=== PATIENT | female | born 1975 | race American Indian/Alaskan Native ===

== ENCOUNTER 2019-06-04 10:51 | Day surgery (SDC) | payer MEDICARE, MEDICAID ==
[2019-06-04] VITALS (7 sets, daily range): BP systolic 109–159; BP diastolic 49–90
[~2019-06-04] VITALS: Ht 172.7 cm; Wt 102.0 kg
[~2019-06-04 10:51] MED LIST: ARIP300S2 IM; CHOL100046 PO; IBUP-24 PO; MULT-933 PO; ceFOXitin 2 GM ADDvantage bag 100 ML IV ONE; ceFOXitin 2 GM ADDvantage bag 50 ML IV ONE; ceFOXitin sod/dextrose 2g/50ml 50 ML IV ONE; cefazolin/dext.iso 2gm/100ml 100 ML IV ONE; famotidine 10mg tablet PO ONE; famotidine 20mg tablet PO ONE; ringers solution, lacted 1,000 ML IV SCH
[2019-06-04] MEDS ORDERED: rocuronium 10mg/ml inj IV ONE ×2 (12:17→12:48)
[2019-06-04] MEDS ORDERED: ceFAZolin 1000mg inj ONE (12:18)
[2019-06-04] MEDS ORDERED: BUPIVAcaine/PF 2.5 mg/ml (0.25%) 30ml vial ONE (12:18)
[2019-06-04] MEDS ORDERED: labetalol 20mg/4ml (5mg/ml) syringe IV ONE (12:37)
[2019-06-04] MEDS ORDERED: sevoflurane 250ml liquid IH ONE (12:37)
[2019-06-04] MEDS ORDERED: fentaNYL/PF 50MCG/1 ML 2ML syringe ONE ×2 (12:40→13:23)
[2019-06-04 12:45] LABS: ISTAT ANION GAP 12 (8-12); ISTAT BUN 10 mg/dL (6-19); ISTAT CL 104 mmol/L (99-107); ISTAT CREATININE 0.6 mg/dL (0.6-1.1); ISTAT GLUCOSE 90 mg/dL (70-104); ISTAT HGB 10.5 g/dl (12.0-16.0); ISTAT Hct 31 %PCV (35-48); ISTAT IONIZED CALCIUM 1.16 mmol/L (1.03-1.32); ISTAT K 4.1 mmol/L (3.5-5.1); ISTAT NA 140 mmol/L (135-145); ISTAT TOTAL CO2 24 mmol/L (24-32); ISTAT eGFR > 90 ML/MIN; POC BUN/CREATININE RATIO 16.7 (6.6-38.0)
[2019-06-04] MEDS ORDERED: LIDOcaine 2% (20mg/ml) 5ml vial ONE (12:48)
[2019-06-04] MEDS ORDERED: glycopyrrolate 0.2mg/ml inj ONE (12:48)
[2019-06-04] MEDS ORDERED: propofol inj 20 ML IV ONE (12:48)
[2019-06-04] MEDS ORDERED: ondansetron/PF 4mg/2ml inj ONE (12:48)
[2019-06-04] MEDS ORDERED: dexamethasone sod phosphate 4mg/ml inj. ONE (12:48)
[2019-06-04] MEDS ORDERED: neostigmine methylsulfate 1 MG/ML 10ml vial ONE (12:48)
[2019-06-04] MEDS ORDERED: ringers solution, lacted 1,000 ML IV SCH (12:58)
[2019-06-04] MEDS ORDERED: labetalol 20mg/4ml (5mg/ml) syringe IV PRN (13:00)
[2019-06-04] MEDS ORDERED: hydrALAZINE 20mg/ml inj. IV PRN (13:00)
[2019-06-04] MEDS ORDERED: ondansetron/PF 4mg/2ml inj IV PRN (13:00)
[2019-06-04] MEDS ORDERED: fentaNYL/PF 50MCG/1 ML 2ML syringe IV PRN ×2 (13:00)
[2019-06-04] MEDS ORDERED: morphine 4 MG/ML inj SYRINge IV PRN ×2 (13:00)
[2019-06-04] MEDS ORDERED: ketorolac trometh. 30mg/ml inj. ONE (13:22)
--- NOTE | 2019-06-04 13:33 | NUR ---
Received from OR via yarelis, accompanied by Anesthesiologist Mary Jane and report given by Anesthesiolgist. Pt lap sites CDI to abdomen, 20G IV to right forearm. Pt sleepy but responsive. All VS stable mask at 10L and sats greater than 98%. Pt has IVF LR at 100cc/hr.
[2019-06-04] MEDS ORDERED: HYDROcodone/acetaminophen 10/325mg tab PO ONE (14:15)
--- NOTE | 2019-06-04 14:43 | NUR ---
Pt discharged to vehicle without issues, verbalized understanding of all discharge information. Pt IV DC'd, all belongings with patient. Ambulated voided and ate. Pt alert and oriented. Pt will hot die picker meds already called into pharmacy. Pt abdomen remains CDI at bandaid lap sites.
== END 2019-06-04 14:43 | disposition home or self-care (01) ==
LOC: PAS 10:51
PROVIDERS: ATTEND Surgery
DX: K80.10 Calculus of gallbladder with chronic cholecystitis without obstruction (principal); K74.60 Unspecified cirrhosis of liver; F32.9 Major depressive disorder, single episode, unspecified; E83.52 Hypercalcemia; F15.10 Other stimulant abuse, uncomplicated; F41.9 Anxiety disorder, unspecified; E66.01 Morbid (severe) obesity due to excess calories; Z68.34 Body mass index [BMI] 34.0-34.9, adult; Z79.899 Other long term (current) drug therapy; F17.210 Nicotine dependence, cigarettes, uncomplicated; Z88.8 Allergy status to other drugs, medicaments and biological substances
CPT/HCPCS: 47562; 80047; J0690; J0694; J1100; J1885; J2001; J2405; J2704; J2710; J3010; J3490; J7120; A4215; A4618; A7000

== ENCOUNTER 2020-10-01 15:53 | Emergency (ER) | payer MEDICARE, MEDICAID ==
[~2020-10-01] VITALS: Ht 172.7 cm; Wt 109.1 kg
[~2020-10-01 15:53] MED LIST changes: -ceFOXitin 2 GM ADDvantage bag 100 ML IV ONE; -ceFOXitin 2 GM ADDvantage bag 50 ML IV ONE; -ceFOXitin sod/dextrose 2g/50ml 50 ML IV ONE; -cefazolin/dext.iso 2gm/100ml 100 ML IV ONE; -famotidine 10mg tablet PO ONE; -famotidine 20mg tablet PO ONE; -ringers solution, lacted 1,000 ML IV SCH
--- NOTE | 2020-10-01 16:10 | NUR ---
Received Pt directly from ambulance, which came from [facility], and placed in bed 22 ER overflow. Pt is on a 5150 hold for DTO/DTS. She is anbulatory and cooperative. She was triaged and, changed into green scrubs and belongings inventoried and secured.
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
[2020-10-01] MEDS ORDERED: acetaminophen 325mg tablet PO ONE (17:35)
[2020-10-01 17:50] LABS: BASOPHILS % (AUTO) 0.5 % (0-1); EOSINOPHILS % (AUTO) 0 % (0-6); HEMATOCRIT 34.4 % (35.0-45.0); LYMPHOCYTES # (AUTO) 2.6 X10'3 (1.1-4.8); LYMPHOCYTES % (AUTO) 33.4 % (21-51); MEAN CORPUSCULAR HEMOGLOBIN 25.4 PG (27.0-31.0); MEAN CORPUSCULAR VOLUME 79.3 FL (78-98); MEAN PLATELET VOLUME 6.7 FL (7.4-10.4); MONOCYTES # (AUTO) 0.8 X10'3 (0-0.9); NEUTROPHILS # (AUTO) 4.3 X10'3 (1.8-7.7); NEUTROPHILS % (AUTO) 56.1 % (42-75); PLATELET COUNT 388 X10'3 (140-440); RED BLOOD COUNT 4.33 X10'6 (4.20-5.60); RED CELL DISTRIBUTION WIDTH 18.6 % (11.5-14.5); WHITE BLOOD COUNT 7.7 X10'3 (4.5-11.0)
[2020-10-01 18:09] LABS: ALANINE AMINOTRANSFERASE 24 U/L (12-78); ALBUMIN 3.2 G/DL (3.4-5.0); ALBUMIN/GLOBULIN RATIO 0.9 (1.1-1.5); ALKALINE PHOSPHATASE 158 IU/L (46-116); ANION GAP 9 (8-16); ASPARTATE AMINO TRANSFERASE 25 U/L (10-37); BILIRUBIN,TOTAL 0.2 MG/DL (0.1-1.0); BLOOD UREA NITROGEN 10 MG/DL (7-18); BUN/CREATININE RATIO 12.8 (6.6-38.0); CALCIUM 8.2 MG/DL (8.5-10.1); CHLORIDE 104 MMOL/L (99-107); CREATININE 0.78 MG/DL (0.40-0.90); ETHANOL < 0.010 GM/DL (0.0-0.010); GLUCOSE 94 MG/DL (70-104); POTASSIUM 3.5 MMOL/L (3.5-5.1); SODIUM 141 MMOL/L (135-145); TOTAL CARBON DIOXIDE 27.8 MMOL/L (24-32); TOTAL PROTEIN 6.9 G/DL (6.4-8.2); eGFR 80 ML/MIN
[2020-10-01 18:52] LABS: PLATELET ESTIMATE NORMAL
[2020-10-01 18:53] LABS: ANISOCYTOSIS 2+; MICROCYTOSIS 1+
[2020-10-01 19:05] LABS: URINE HCG NEGATIVE (NEG)
[2020-10-01 19:10] LABS: URINE AMPHETAMINE SCREEN POSITIVE (Neg); URINE BARBITUATE SCREEN NEGATIVE (Neg); URINE BENZODIAZEPINES SCREEN NEGATIVE (Neg); URINE CANNABINOID SCREEN POSITIVE (Neg); URINE COCAINE SCREEN NEGATIVE (Neg); URINE METHADONE SCREEN NEGATIVE (Neg); URINE OPIATE SCREEN POSITIVE (Neg); URINE PHENCYCLIDINE SCREEN NEGATIVE (Neg)
--- NOTE | 2020-10-01 20:44 | NUR ---
BREAKING PRIMARY RN; WILL CONT TO MONITOR.
--- NOTE | 2020-10-02 02:06 | NUR ---
Caity Patel has called notified nurse of bed hold for patient, pending negative COVID-19 test.
--- NOTE | 2020-10-02 03:27 | NUR ---
BREAKING PRIMARY RN, WILL CONT TO MONITOR
--- NOTE | 2020-10-02 06:11 | NUR ---
Caity Patel was just notified of negative COVID-19 results via phone. Lab results have also been faxed over.
--- NOTE | 2020-10-02 07:14 | NUR ---
NURSE TO NURSE REPORT GIVEN TO JAMAL SNIDER. PT HAS BEEN ACCEPTED AND ETA FOR TRANSPORT IS 1700. ACCEPTING MD IS DR LAW AND PT WILL BE ADMITTED TO 302A
--- NOTE | 2020-10-02 11:39 | NUR ---
JENS FROM [facility] OFF[facility] CALLED, NO DRIVERS ARE AVAILABLE TO TRANSPORT PT TO [facility] TODAY. WILL CONTINUE TO LOOK AT PLACEMENTS, [facility] WAS CONTACTED.
--- NOTE | 2020-10-02 16:22 | NUR ---
PT SLEEPING QUIETLY, NO S/S OF DISTRESS NOTED
[2020-10-02] MEDS ORDERED: acetaminophen 325mg tablet PO ONE (18:00)
--- NOTE | 2020-10-03 06:40 | NUR ---
PT RESTING WITH EYES CLOSED, EFFORTLESS RESPIRATIONS OBSERVED.
--- NOTE | 2020-10-03 09:25 | NUR ---
RECEIVED CALL FROM STAFF AT [facility] (SANJAY) THAT PTS BED IS NO LONGER BEING HELD DUE TO TRANSPORT WAIT. [facility] OFFICE CONTACTED AND INFORMED JENS OF UPDATE
--- NOTE | 2020-10-03 11:19 | NUR ---
PT REMAINS CALM,COOPERATIVE AND CONTINUES TO DENIE SI OR HI.
--- NOTE | 2020-10-03 13:30 | NUR ---
PT UP AND EATING LUNCH TRAY
--- NOTE | 2020-10-03 19:30 | NUR ---
The patient was moved to bed 22 in the ER overflow. She was very cooperative with the move. She appeared sad and was tearful when asked about voices. She stated that she was hearing voices that tell her that she had a baby that . She stated that she has a history of schizophrenia and has been receiving a monthly abilify injection with her last injection was two weeks ago. Dr. Green was made aware and orders received.
[2020-10-03] MEDS ORDERED: OLANZapine 2.5MG tablet PO ONE (19:45)
[2020-10-03] MEDS ORDERED: OLANZAPINE 5 MG TABLET PO ONE (19:45)
--- NOTE | 2020-10-03 20:42 | NUR ---
The patienta appears to be sleeping
--- NOTE | 2020-10-03 21:44 | NUR ---
The patient appears to be sleeping
--- NOTE | 2020-10-03 23:59 | NUR ---
The patient appears to be sleeping
--- NOTE | 2020-10-04 02:15 | NUR ---
The patient appears to be sleeping
--- NOTE | 2020-10-04 04:03 | NUR ---
The patient appears to be sleeping
--- NOTE | 2020-10-04 06:42 | NUR ---
Patient sleeping supine. No distress observed. Continue to monitor.
--- NOTE | 2020-10-04 07:40 | NUR ---
Patient sleeping on right side. No distress observed. Continue to monitor.
--- NOTE | 2020-10-04 09:11 | NUR ---
Patient is awake and needing a pad for her menses. Patient also asked for some Tylenol. Patient stated she does not want Ibuprofen because it gives her a stomach ache. RN to get order. Continue to monitor.
[2020-10-04] MEDS: acetaminophen 325mg tablet PO PRN ×2 (09:23→14:07)
--- NOTE | 2020-10-04 11:02 | NUR ---
Patient reclining in bed with a warm blanket on her abdomen. Continue to monitor.
--- NOTE | 2020-10-04 12:25 | NUR ---
KAITLYNN MEEKO AT BEDSIDE EVALUATING PATIENT.
--- NOTE | 2020-10-04 13:10 | NUR ---
Patient eating lunch. No distress observed. Continue to monitor.
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
--- NOTE | 2020-10-04 16:00 | NUR ---
Patient making phone calls. No distress observed. Continue to monitor.
--- NOTE | 2020-10-04 17:29 | NUR ---
Patient sleeping on right side. No distress observed. Continue to monitor.
[2020-10-04 17:45] VITALS: BP 114/66
[2020-10-04] MEDS ORDERED: LORazepam 1 MG tablet PO PRN (17:50)
[2020-10-04] MEDS ORDERED: OLANZapine 5mg rapidly disint. tablet PO SCH (20:00)
[2020-10-04] MEDS ORDERED: OLAN-1 PO (21:32)
[2020-10-05] MEDS ORDERED: ACET325T55 PO (11:13)
== END 2020-10-04 21:22 ==
LOC: ER 15:54
DX: F32.9 Major depressive disorder, single episode, unspecified (principal); F20.9 Schizophrenia, unspecified; Z20.822 Contact with and (suspected) exposure to COVID-19; F15.90 Other stimulant use, unspecified, uncomplicated; Z90.49 Acquired absence of other specified parts of digestive tract; Z72.89 Other problems related to lifestyle; Z88.8 Allergy status to other drugs, medicaments and biological substances; Z79.899 Other long term (current) drug therapy
CPT/HCPCS: 80053; 80305; 80320; 81025; 85008; 85025; 87635; 99285; C9803

== ENCOUNTER 2023-04-22 12:55 | Emergency (ER) | payer MEDICARE, MEDICAID ==
[~2023-04-22] VITALS: Ht 175.3 cm; Wt 90.9 kg
[~2023-04-22 12:55] MED LIST changes: +ACET325T55 PO; -ARIP300S2 IM; +ARIP400S3 IM; -IBUP-24 PO; +MULT-25 PO; -MULT-933 PO; +OLAN10TA73 PO
[2023-04-22 12:59] VITALS: BP 123/62; PULSE 79; RESP 20; TEMP 97; O2SAT 100
[2023-04-22 14:23] LABS: EOSINOPHILS % (AUTO) 0 % (0-6); HEMOGLOBIN 11.6 g/dl (12.0-16.0); LYMPHOCYTES # (AUTO) 2.1 X10'3 (1.1-4.8); MEAN PLATELET VOLUME 7.1 FL (7.4-10.4); MONOCYTES # (AUTO) 0.6 X10'3 (0-0.9)
[2023-04-22 14:28] LABS: BASOPHILS # (AUTO) 0.1 X10'3 (0-0.2); BASOPHILS % (AUTO) 0.7 % (0-1); HEMATOCRIT 35.6 % (35.0-45.0); LYMPHOCYTES % (AUTO) 26.7 % (21-51); MEAN CORPUSCULAR HGB CONC 32.7 g/dL (33.0-36.5); MEAN CORPUSCULAR VOLUME 85.6 FL (78-98); MONOCYTES % (AUTO) 8.1 % (2-12); NEUTROPHILS % (AUTO) 64.5 % (42-75); PLATELET COUNT 412 X10'3 (140-440); RED BLOOD COUNT 4.15 X10'6 (4.20-5.60); RED CELL DISTRIBUTION WIDTH 15.5 % (11.5-14.5); WHITE BLOOD COUNT 7.8 X10'3 (4.5-11.0)
[2023-04-22 14:31] LABS: ALANINE AMINOTRANSFERASE 7 U/L (12-78); ALBUMIN 3.2 G/DL (3.4-5.0); ALBUMIN/GLOBULIN RATIO 0.9 (1.1-1.5); ALKALINE PHOSPHATASE 135 IU/L (46-116); ANION GAP 6 (8-16); ASPARTATE AMINO TRANSFERASE 13 U/L (10-37); BILIRUBIN,TOTAL 0.2 MG/DL (0.1-1.0); BLOOD UREA NITROGEN 12 MG/DL (7-18); BUN/CREATININE RATIO 16.2 (10.0-20.0); CALCIUM 8.3 MG/DL (8.5-10.1); CHLORIDE 103 MMOL/L (99-107); CREATININE 0.74 MG/DL (0.40-0.90); ETHANOL < 10 MG/DL (<10); GLUCOSE 93 MG/DL (70-104); POTASSIUM 4.5 MMOL/L (3.5-5.1); SODIUM 137 MMOL/L (135-145); THYROID STIMULATING HORMONE 1.48 ulU/ml (0.34-4.50); TOTAL PROTEIN 6.6 G/DL (6.4-8.2); eCRCL 98 ML/MIN; eGFR 84 ML/MIN
[2023-04-22 15:11] LABS: BILIRUBIN,URINE NEGATIVE (Neg); CLARITY,URINE CLEAR (Clear); COLOR,URINE YELLOW (Yellow); GLUCOSE, URINE NEGATIVE (Neg); KETONES,URINE NEGATIVE (Neg); LEUKOCYTE ESTERASE ,URINE NEGATIVE (Neg); NITRITES, URINE NEGATIVE (Neg); OCCULT BLOOD,URINE NEGATIVE (Neg); PROTEIN,URINE NEGATIVE (Neg); URINE HCG NEGATIVE (NEG); UROBILINOGEN,URINE 0.2 E.U/dL (0.2-1.0)
[2023-04-22 15:23] LABS: UA COLLECTION TYPE CLN CATCH MIDSTREAM
[2023-04-22] MEDS ORDERED: DOXYCYCLINE 100MG CAPSULE PO STA (15:24)
[2023-04-22] MEDS ORDERED: DOXY-1 PO (15:26)
[2023-04-22 15:28] LABS: URINE AMPHETAMINE SCREEN POSITIVE (Neg); URINE BARBITUATE SCREEN NEGATIVE (Neg); URINE BENZODIAZEPINES SCREEN NEGATIVE (Neg); URINE CANNABINOID SCREEN POSITIVE (Neg); URINE COCAINE SCREEN NEGATIVE (Neg); URINE METHADONE SCREEN NEGATIVE (Neg); URINE OPIATE SCREEN POSITIVE (Neg); URINE PHENCYCLIDINE SCREEN NEGATIVE (Neg)
== END 2023-04-22 15:39 | disposition home or self-care (01) ==
LOC: ER 12:55
DX: L03.311 Cellulitis of abdominal wall (principal); R53.1 Weakness; F31.9 Bipolar disorder, unspecified
CPT/HCPCS: 36415; 80053; 80305; 80320; 81003; 81025; 84443; 85025; 99283

== ENCOUNTER 2025-02-15 15:01 | Emergency (ER) | payer MEDICARE, MEDICAID ==
[~2025-02-15] VITALS: Ht 172.7 cm; Wt 90.9 kg
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
[2025-02-15 16:25] VITALS: BP 132/83; PULSE 77; RESP 20; TEMP 97.1; O2SAT 98
== END 2025-02-15 16:54 | disposition home or self-care (01) ==
LOC: ER 15:01
DX: S00.93XA Contusion of unspecified part of head, initial encounter (principal); F15.90 Other stimulant use, unspecified, uncomplicated; Z88.6 Allergy status to analgesic agent; Z90.49 Acquired absence of other specified parts of digestive tract; X58.XXXA Exposure to other specified factors, initial encounter; Y93.89 Activity, other specified; Y92.89 Other specified places as the place of occurrence of the external cause; Y99.8 Other external cause status
CPT/HCPCS: 99283